=== PATIENT | male | born 1990 | race Two or more races ===

== ENCOUNTER 2017-06-07 08:32 | Emergency (ER) | payer MEDICAID ==
[~2017-06-07] VITALS: Ht 182.9 cm; Wt 74.8 kg
[2017-06-07 08:34] VITALS: BP 122/74
== END 2017-06-07 08:56 | disposition home or self-care (01) ==
LOC: ER 08:34
DX: J20.9 Acute bronchitis, unspecified (principal); Z88.0 Allergy status to penicillin
CPT/HCPCS: A4606; Z7610

== ENCOUNTER 2017-07-08 15:10 | Emergency (ER) | payer MEDICAID ==
[~2017-07-08] VITALS: Ht 182.9 cm; Wt 79.4 kg
[2017-07-08 15:10] VITALS: BP 136/91
== END 2017-07-08 15:42 | disposition home or self-care (01) ==
LOC: ER 15:11
DX: J06.9 Acute upper respiratory infection, unspecified (principal); Z88.0 Allergy status to penicillin
CPT/HCPCS: 99283; A4606; Z7610